=== PATIENT | female | born 1980 | race Caucasian/White ===

== ENCOUNTER 2019-10-17 08:41 | Emergency (ER) | payer OTHER ==
[2019-10-17 09:11] VITALS: BP 145/84; PULSE 77
[2019-10-17] MEDS ORDERED: Acetaminophen 325 MG Tab PO ONE (09:39)
[2019-10-17] MEDS ORDERED: Ketorolac 60 MG/2 ML SDV IM ONE (09:39)
--- NOTE | 2019-10-17 10:05 | EDM.PDOC ---
ED HPI GENERAL MEDICAL PROBLEM - General Chief Complaint: PRINCIPAL DEVELOPER Problem Stated Complaint: MENSTRUAL CRAMPS AND BLEEDING Time Seen by Provider: 10/17/19 09:26 Source of Information: Reports: Patient, RN Notes Reviewed - History of Present Illness INITIAL COMMENTS - FREE TEXT/NARRATIVE: 39-year-old female started with some pelvic pain and cramping 3 or 4 days ago and then with heavy menstrual bleeding yesterday. The pain, cramping and heavy menstrual bleeding continues today soaking pads quite frequently. She states that she was started on control pills month ago for prior heavy menstrual periods but now with this menstrual periods starting this is "even much worse than what she has experienced previously. She has been taking Motrin and Midol without good relief with her last dose about 8 hours ago. She states she did have prior pelvic ultrasound some time ago with no apparent abnormality at that time. She has no chest pain or difficulty breathing. No shoulder or severe back discomfort at this time. Lower Suprapubic Pain Score (Numeric/FACES): 9 - Related Data Allergies Allergy/AdvReac Type Severity Reaction Status Date / Time Penicillins Allergy Hives Verified 10/17/19 09:11 Home Meds: Home Meds Ibuprofen 200 mg PO Q6H PRN 08/06/18 [History] Docusate Sodium [Colace] 100 mg PO BID 20 Days #40 cap 08/07/18 [Rx] Acetaminophen/HYDROcodone [Ophiem 325-5 MG] 1 tab PO Q6H PRN #14 tablet 10/17/19 [Rx] Past Medical History HEENT History: Reports: Impaired Vision Cardiovascular History: Reports: None Respiratory History: Reports: None Gastrointestinal History: Reports: None Genitourinary History: PRINCIPAL DEVELOPER History: Reports: Other (See Below) Other PRINCIPAL DEVELOPER History: ovarian cyst, uterine perforation by IUD Musculoskeletal History: Reports: Other (See Below) Other Musculoskeletal History: left hand pain, bilateral plantar fasciitis Neurological History: Reports: None Psychiatric History: Reports: None Endocrine/Metabolic History: Reports: Obesity/BMI 30+ Hematologic History: Reports: None Immunologic History: Reports: None Oncologic (Cancer) History: Reports: None Dermatologic History: Reports: None - Past Surgical History Head Surgeries/Procedures: Reports: None HEENT Surgical History: Reports: Oral Surgery, Tonsillectomy Cardiovascular Surgical History: Reports: None Respiratory Surgical History: Reports: None GI Surgical History: Reports: Cholecystectomy Endocrine Surgical History: Reports: None Neurological Surgical History: Reports: None Musculoskeletal Surgical History: Reports: Other (See Below) Other Musculoskeletal Surgeries/Procedures:: left hand surgery, bilateral knee surgery Oncologic Surgical History: Reports: None Dermatological Surgical History: Reports: None Social & Family History - Tobacco Use Smoking Status *Q: Never Smoker - Caffeine Use Caffeine Use: Reports: Coffee - Living Situation & Occupation Living situation: Reports: Occupation: Employed ED ROS GENERAL - Review of Systems Review Of Systems: See Below Constitutional: Denies: Fever, Chills, Diaphoresis HEENT: Reports: No Symptoms Respiratory: Denies: Shortness of Breath Cardiovascular: Denies: Chest Pain GI/Abdominal: Reports: Abdominal Pain (low abd and pelvic). Denies: Nausea, Vomiting : Reports: Other (heavy menstrual bleeding yesterday and today) Musculoskeletal: Denies: Back Pain Skin: Denies: Rash Neurological: Denies: Dizziness ED EXAM, RENAL/ - Physical Exam Exam: See Below General Appearance: Alert, No Apparent Distress Throat/Mouth: Normal Inspection, Normal Oropharynx Head: Atraumatic. No: Facial Swelling Neck: Supple Respiratory/Chest: No Respiratory Distress, Lungs Clear, Normal Breath Sounds Cardiovascular: JVD GI/Abdominal: Soft, Non-Tender Back Exam: No: CVA Tenderness (L), CVA Tenderness (R) Extremities: Normal Inspection, Normal Range of Motion Neurological: Alert, Oriented, No Motor/Sensory Deficits Skin Exam: Warm, Dry, Normal Color, No Rash Course - Vital Signs Last Recorded V/S: Last Vital Signs Temp 98.1 F 10/17/19 09:07 Pulse 77 10/17/19 09:07 Resp 18 10/17/19 09:07 BP 145/84 H 10/17/19 09:07 Pulse Ox 97 10/17/19 09:07 - Orders/Labs/Meds Labs: Laboratory Tests 10/17/19 10/17/19 Range/Units 09:49 09:49 WBC 11.91 H (3.98-10.04) K/mm3 RBC 4.13 (3.98-5.22) M/mm3 Hgb 12.6 (11.2-15.7) gm/dl Hct 38.3 (34.1-44.9) % MCV 92.7 (79.4-94.8) fl MCH 30.5 (25.6-32.2) pg MCHC 32.9 (32.2-35.5) g/dl RDW Std Deviation 45.6 (36.4-46.3) fL Plt Count 285 (182-369) K/mm3 MPV 10.4 (9.4-12.3) fl Neut % (Auto) 76.8 H (34.0-71.1) % Lymph % (Auto) 15.8 L (19.3-51.7) % [place] % (Auto) 5.6 (4.7-12.5) % Eos % (Auto) 1.4 (0.7-5.8) Baso % (Auto) 0.2 (0.1-1.2) % Neut # (Auto) 9.15 H (1.56-6.13) K/mm3 Lymph # (Auto) 1.88 (1.18-3.74) K/mm3 [place] # (Auto) 0.67 H (0.24-0.36) K/mm3 Eos # (Auto) 0.17 (0.04-0.36) K/mm3 Baso # (Auto) 0.02 (0.01-0.08) K/mm3 HCG, Quant < 1.0 mIU/mL Meds: Medications Discontinued Medications Generic Name Dose Route Start Last Admin Trade Name Freq PRN Reason Stop Dose Admin Acetaminophen 975 mg 10/17/19 09:39 10/17/19 09:57 Tylenol PO 10/17/19 09:40 975 mg NOW ONE Administration Ketorolac Tromethamine 60 mg 10/17/19 09:39 10/17/19 09:57 Toradol IM 10/17/19 09:40 60 mg ONETIME ONE Administration - Re-Assessments/Exams Free Text/Narrative Re-Assessment/Exam: 10/24/19 19:24 HCG neg, hgb 12.6. Pt feels that bleeding is less at time of follow up discussion of labs from a few hrs prior, discharge instr. as documented. Departure - Departure Time of Disposition: 11:39 Disposition: Home, Self-Care 01 Condition: Fair Clinical Impression: Menorrhagia - Discharge Information Prescriptions: Acetaminophen/HYDROcodone [Ophiem 325-5 MG] 1 tab PO Q6H PRN #14 tablet PRN Reason: Pain Instructions: Menorrhagia, [id number] Referrals: PCP,None [Primary Care Provider] - Forms: ED Department Discharge Additional Instructions: rest, drink plenty water to maintain hydration, continue midol regular basis until pain and cramping resolves. You may take Tylenol in addition up to 3 times daily or hydrocodone if needed for severe pain. Do not take Tylenol and hydrocodone at the same time, do not drive while taking hydrocodone. Prescription for hydrocodone has been sent electronically to [facility] open 12 noon to [address] Melissa's office tomorrow morning if bleeding and cramping has not subsided to a more normal pattern, call or return to ED if symptoms worsening in any way. Sepsis Event Note - Evaluation Sepsis Screening Result: No Definite Risk - Focused Exam Date Exam was Performed: 10/24/19 Time Exam was Performed: 19:22
--- NOTE | 2019-10-17 11:13 | US ---
Pelvic ultrasound: Multiple real-time images were obtained transvaginally. Comparison: Previous pelvic ultrasound study of 01/14/10. Technologist's note: Suboptimal exam due to patient body habitus. Uterus is anteverted. Nabothian cysts are present. Complete uterus is not optimally seen. Endometrial thickness measures around 1.7 cm. No fluid within the endometrial cavity is seen. No gross myometrial abnormality is appreciated. Both ovaries are not visualized with certainty. Measurements: Uterus: Length 10.9 cm, AP height 5.0 cm, transverse width 6.2 cm Impression: 1. Somewhat suboptimal exam as noted above. 2. Endometrial thickness at 1.7 cm. No fluid is seen within the endometrial cavity. 3. Portions of the uterus as well as ovaries not well seen. Diagnostic code #2 This report was dictated in [place] Standard Time
== END 2019-10-17 12:07 | disposition home or self-care (01) ==
LOC: JD.ED 08:41
DX: N92.0 Excessive and frequent menstruation with regular cycle (principal); E66.9 Obesity, unspecified; Z68.42 Body mass index [BMI] 45.0-49.9, adult; Z88.0 Allergy status to penicillin
CPT/HCPCS: 36415; 76830; 84702; 85025; 96372; 99284; A9270; J1885; 99283

== ENCOUNTER 2021-10-10 08:23 | Day surgery (SDC) | payer OTHER ==
[~2021-10-10 08:23] MED LIST: Lactated Ringers 1,000 ML IV SCH; Lidocaine 1%/Sod Bicarbonate in NS 8.4% 1 ML Syringe IDERM PRN; Sodium Chloride 0.9% 10 ML Syringe FLUSH PRN; Sodium Chloride 0.9% 10 ML Syringe FLUSH SCH
[2021-10-10] MEDS ORDERED: Propofol 200 MG/20 ML SDV ONE ×2 (08:32→09:48)
[2021-10-10] MEDS ORDERED: Lidocaine 1% 4 ML ONE (08:32)
[2021-10-10] MEDS ORDERED: Bupivacaine 0.5% 10 ML SDV ONE (09:54)
[2021-10-10 10:25] VITALS: PULSE 70
[2021-10-10 11:16] VITALS: BP 145/80
== END 2021-10-10 10:58 | disposition home or self-care (01) ==
LOC: JD.SDS 08:23
PROVIDERS: ATTEND Surgery
DX: Z12.11 Encounter for screening for malignant neoplasm of colon (principal); K63.5 Polyp of colon; G47.33 Obstructive sleep apnea (adult) (pediatric); K64.8 Other hemorrhoids; E66.01 Morbid (severe) obesity due to excess calories; Z90.49 Acquired absence of other specified parts of digestive tract; Z98.890 Other specified postprocedural states; Z88.0 Allergy status to penicillin; Z87.891 Personal history of nicotine dependence; Z68.42 Body mass index [BMI] 45.0-49.9, adult
CPT/HCPCS: 45380; 46221; 81025; J2704; J3490; J7120; 00811

== ENCOUNTER 2022-12-22 09:02 | Emergency (ER) | payer OTHER ==
[2022-12-22 11:08] VITALS: BP 155/88; PULSE 73
== END 2022-12-22 11:04 | disposition home or self-care (01) ==
LOC: JD.ED 09:02
DX: N93.8 Other specified abnormal uterine and vaginal bleeding (principal); R42 Dizziness and giddiness; R03.0 Elevated blood-pressure reading, without diagnosis of hypertension; E66.9 Obesity, unspecified; Z68.43 Body mass index [BMI] 50.0-59.9, adult; Z86.16 Personal history of COVID-19; Z88.0 Allergy status to penicillin; Z79.899 Other long term (current) drug therapy
CPT/HCPCS: 36415; 80053; 84443; 84703; 85025; 93005; 93010; 99283; 99284